=== PATIENT | female | born 1985 | race Two or more races ===

== ENCOUNTER 2018-12-17 12:24 | Inpatient (IN) ==
[2018-12-17] MEDS: D5 1/2 NS 1000 ML 1,000 ML IV SCH ×2 (12:50→22:30)
[2018-12-17] MEDS ORDERED: NS IRRIGATION 1000 ML ONE (12:59)
[2018-12-17] MEDS ORDERED: PITOCIN IVP ONE (13:01)
[2018-12-17] MEDS ORDERED: REGLAN INJ 10 MG VIAL IVP PRN ×2 (13:01→18:04)
[2018-12-17] MEDS ORDERED: D5LR 1L W PITOCIN 10 UNITS/L 10 UNITS/1,000 ML BAG IV PRN (13:01)
[2018-12-17] MEDS ORDERED: NUBAIN INJ 200 MG VIAL MULTIDOSE IVP PRN (13:01)
[2018-12-17] MEDS ORDERED: D5 1/2 NS 1000 ML 1,000 ML ONE (13:07)
[2018-12-17] MEDS ORDERED: D5LR 1L W PITOCIN 10 UNITS/L 10 UNITS/1,000 ML BAG IV ONE (13:07)
[2018-12-17] MEDS ORDERED: APRESOLINE INJ 20 MG VIAL IVP ONE (13:20)
[2018-12-17 13:39] LABS: BASOPHILS % (AUTO) 0.1 % (0.2-1.0); EOSINOPHILS % (AUTO) 0.3 % (0.9-2.9); HEMATOCRIT 32.6 % (36.0-47.0); HEMOGLOBIN 11.3 g/dL (12.0-16.0); LYMPHOCYTES # (AUTO) 1.6 X10^3/uL (1.3-2.9); MEAN CORPUSCULAR HEMOGLOBIN 29.4 pg (27.0-34.0); MEAN CORPUSCULAR HGB CONC 34.6 g/dL (33.0-35.0); MEAN CORPUSCULAR VOLUME 85.1 fL (80.0-100.0); MEAN PLATELET VOLUME 7.4 fL (7.4-11.0); MONOCYTES # (AUTO) 0.3 x10^3/uL (0.3-0.8); MONOCYTES % (AUTO) 3.7 % (0.0-13.0); NEUTROPHILS % (AUTO) 75.9 % (42.0-75.0); PLATELET COUNT 275 X10^3/uL (150.0-450.0); RED BLOOD COUNT 3.83 X10^6/uL (3.5-5.4); RED CELL DISTRIBUTION WIDTH 13.9 % (11.6-16.5); WHITE BLOOD COUNT 7.9 X10^3/uL (3.6-10.0)
[2018-12-17 13:44] LABS: BLOOD UREA NITROGEN 8 mg/dL (7-18); CALCIUM 8.9 mg/dL (8.5-10.1); CHLORIDE 101 mmol/L (98-107); CREATININE 0.45 mg/dL (0.55-1.02); SODIUM 133 mmol/L (136-145); URIC ACID 6.3 mg/dL (2.6-6.0); eGFR NON BLACK RACES > 60 (>60)
[2018-12-17 14:10] LABS: BILIRUBIN,URINE NEGATIVE (NEGATIVE); BLOOD/HEMOGLOBIN,URINE 3+ (NEGATIVE); GLUCOSE, URINE NEGATIVE (NEGATIVE); KETONES,URINE NEGATIVE (NEGATIVE); LEUKOCYTE ESTERASE ,URINE NEGATIVE (NEGATIVE); NITRITES,URINE NEGATIVE (NEGATIVE); PROTEIN,URINE 3+ (NEGATIVE); UROBILINOGEN,URINE NORMAL (NORMAL)
[2018-12-17 14:14] LABS: APPEARANCE,URINE HAZY (CLEAR); BACTERIA,URINE NEGATIVE /HPF (NEGATIVE); COLOR,URINE YELLOW (YELLOW); MUCUS,URINE FEW /HPF (NEGATIVE); SQUAMOUS EPITHELIAL CELL,UR RARE /HPF (NEGATIVE)
[2018-12-17 15:11] LABS: ALANINE AMINOTRANSFERASE 9 Units/L (12-78); ASPARTATE AMINO TRANSFERASE 15 Units/L (15-37)
[2018-12-17] MEDS ORDERED: PITOCIN ONE (15:21)
[2018-12-17] MEDS ORDERED: MARCAINE SPINAL ONE (15:21)
[2018-12-17] MEDS ORDERED: ZOFRAN INJ 4 MG VIAL ONE (15:21)
[2018-12-17] MEDS ORDERED: XYLOCAINE 1 % (PLAIN) ONE (15:21)
[2018-12-17] MEDS ORDERED: ANCEF 1 GRAM IV PREMIX* 1 G/50 ML BAG IV ONE (16:22)
[2018-12-17] MEDS ORDERED: LR 1000 ML IV 2,000 ML ONE (16:55)
[2018-12-17] MEDS ORDERED: DILAUDID INJ ONE (16:56)
[2018-12-17] MEDS ORDERED: D5 1/2 NS 1L W PITOCIN 20 UNITS/L 20 UNITS/1,000 ML BAG IV ONE (17:13)
[2018-12-17] MEDS ORDERED: PHENERGAN INJ 25 MG IM PRN (18:04)
[2018-12-17] MEDS ORDERED: BENADRYL INJ 50 MG VIAL IVP PRN (18:04)
[2018-12-17] MEDS ORDERED: ZOFRAN INJ 4 MG VIAL IVP PRN (18:04)
[2018-12-17] MEDS ORDERED: APRESOLINE INJ 20 MG VIAL IVP PRN (18:06)
[2018-12-17] MEDS ORDERED: D5 1/2 NS 1000 ML 1,000 ML with PITOCIN 20 UNITS IV SCH ×2 (19:00)
[2018-12-17] MEDS ORDERED: ADACEL or BOOSTRIX TDaP VACCINE IM ONE (21:00)
[2018-12-17] MEDS: LOPRESSOR TAB 50 MG PO SCH (22:30)
[2018-12-18] MEDS: D5 1/2 NS 1000 ML 1,000 ML IV SCH ×3 (03:41→15:26)
[2018-12-18 05:16] LABS: HEMATOCRIT 27.9 % (36.0-47.0); HEMOGLOBIN 9.6 g/dL (12.0-16.0)
[2018-12-18] MEDS: LOPRESSOR TAB 50 MG PO SCH ×2 (08:56→21:40)
[2018-12-18] MEDS ORDERED: NS 100 ML IV 100 ML with VENOFER 400 MG IV NR ×2 (09:00)
[2018-12-18] MEDS: MOTRIN TAB 800 MG PO PRN (15:15)
[2018-12-19] MEDS: MOTRIN TAB 800 MG PO PRN (03:14)
[2018-12-19] MEDS: LOPRESSOR TAB 50 MG PO SCH (08:52)
[2018-12-19 10:05] VITALS: BP 161/96
== END 2018-12-19 10:40 | disposition home or self-care (01) | DRG 788 ==
LOC: LD 12:24 → MED/SURG 18:29
PROVIDERS: ADMIT Obstetrics & Gynecology Obstetrics; ATTEND Obstetrics & Gynecology Obstetrics
DX: O61.8 Other failed induction of labor; Z3A.37 37 weeks gestation of pregnancy; O34.211 Maternal care for low transverse scar from previous cesarean delivery; O13.3 Gestational [pregnancy-induced] hypertension without significant proteinuria, third trimester; N85.8 Other specified noninflammatory disorders of uterus; Z37.0 Single live birth; Z23 Encounter for immunization
CPT/HCPCS: 36415; 80048; 81001; 82607; 82728; 82746; 83540; 84450; 84460; 84466; 84550; 85014; 85018; 85025; 85384; 85610; 85730; 86592; 86850; 86900; 86901; 90715; A4222; J0690; J1170; J1756; J2405; J2590; J7050; J7120; S5010